=== PATIENT | female | born 2000 | race African-American/Black ===

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

== ENCOUNTER 2021-10-06 13:25 | Emergency (ER) | payer MEDICAID ==
[~2021-10-06] VITALS: Ht 167.6 cm; Wt 73.0 kg
[2021-10-06] MEDS ORDERED: IBUPROFEN 600MG TABLET PO STA (14:19)
[2021-10-06] MEDS ORDERED: NAPR-681 PO (16:36)
[2021-10-06] MEDS ORDERED: AMOX-424 PO (16:36)
[2021-10-06 17:36] VITALS: BP 141/75
== END 2021-10-06 17:36 | disposition home or self-care (01) ==
LOC: ER 13:34
DX: S61.253A Open bite of left middle finger without damage to nail, initial encounter (principal); S00.83XA Contusion of other part of head, initial encounter; Y04.1XXA Assault by human bite, initial encounter; Y04.0XXA Assault by unarmed brawl or fight, initial encounter; Y07.03 Male partner, perpetrator of maltreatment and neglect; Y93.89 Activity, other specified; Y92.89 Other specified places as the place of occurrence of the external cause
CPT/HCPCS: 70486; 81025; 99284

== ENCOUNTER 2023-01-29 05:36 | Inpatient (IN) | payer MEDICAID, OTHER ==
[~2023-01-29] VITALS: Ht 170.2 cm; Wt 117.9 kg
[~2023-01-29 05:36] MED LIST: AMOX-424 PO; NAPR-681 PO
[2023-01-29] MEDS ORDERED: SODIUM CHLORIDE 0.9% 1,000 ML IV ONE (05:45)
[2023-01-29 06:16] LABS: BG BASE EXCESS -1.3 mmol/L (-2.0-2.0); BG CARBOXYHEMOGLOBIN 0.8 % (0.5-1.5); BG DEOXYHEMOGLOBIN 4.6 % (0.0-5.0); BG FRACTION INSPIRED OXYGEN 21; BG HCO3 ACT 21.7 mmol/L (22.0-26.0); BG METHEMOGLOBIN 0.2 % (0.0-1.5); BG OXYGEN SATURATION 95.4 % (92.0-98.5); BG OXYHEMOGLOBIN 94.4 % (94.0-97.0); BG PO2 77.8 mmHg (75.0-100.0); BG SAMPLE SITE RIGHT RADIAL; BG TOTAL HEMOGLOBIN 14.2 g/dL (12.0-18.0); BG VENT MODE ROOM AIR
[2023-01-29 07:08] LABS: BASOPHILS % 0.3 % (0.0-2.0); EOSINOPHILS % 0.7 % (0.0-5.0); HEMATOCRIT. 36.6 % (36.0-48.0); HEMOGLOBIN. 12.2 g/dL (12.0-16.0); LYMPHOCYTES % 12.1 % (20.0-50.0); MEAN CORPUSCULAR HEMOGLOBIN 27.2 pg (28.0-32.0); MEAN CORPUSCULAR VOLUME 81.6 fL (81.0-99.0); MEAN PLATELET VOLUME 7.7 fl (7.4-10.4); MONOCYTES % 1.1 % (2.0-8.0); NEUTROPHILS % 85.8 % (40.0-76.0); PLATELET 331 x1000/uL (130-400); RED BLOOD CELL COUNT 4.49 mill/uL (4.2-5.4); RED CELL DISTRIBUTION WIDTH 16.2 % (11.6-14.6)
[2023-01-29 07:20] LABS: CHLORIDE 106 mEq/L (98-107)
[2023-01-29 07:29] LABS: B-HCG QUANTITATIVE 13 mIU/mL (<3)
[2023-01-29 07:43] LABS: HCG SCREEN POSITIVE
[2023-01-29] MEDS ORDERED: SODIUM CHLORIDE 0.9% 1000ML BAG (SEPSIS BOLUS) IV ONE (08:00)
[2023-01-29] MEDS ORDERED: PIPERACILLIN/TAZ 3.375G PREMIX 50 ML IV ONE (08:00)
[2023-01-29 09:47] LABS: INR 1.1; PROTHROMBIN TIME 11.6 sec (9.6-11.0)
[2023-01-29 10:29] LABS: CLARITY URINE CLOUDY (CLEAR); COLOR URINE YELLOW (YELLOW); KETONES URINE TRACE (NEGATIVE); LEUKOCYTE ESTERASE URINE 3+ (NEGATIVE); NITRITE URINE NEGATIVE (NEGATIVE); OCCULT BLOOD URINE 3+ (NEGATIVE); PH URINE 5.5 (4.5-8.0); PROTEIN URINE 1+ (NEGATIVE); SPECIFIC GRAVITY URINE 1.017 (1.005-1.030)
[2023-01-29] MEDS ORDERED: ACETAMINOPHEN 500MG TABLET PO PRN (16:45)
[2023-01-29 20:00] VITALS: BP 117/62
[2023-01-29] MEDS ORDERED: CLINDAMYCIN 900 MG in DEXTROSE 5% WATER 50 ML IV SCH (22:00)
[2023-01-30] VITALS (8 sets, daily range): BP systolic 97–145; BP diastolic 52–98
[2023-01-30] MEDS: CEFOXITIN 2G in DEXTROSE 5% WATER 100ML IV SCH ×5 (00:46→23:31)
[2023-01-30] MEDS: IBUPROFEN 600MG TABLET PO SCH ×5 (00:50→23:34)
[2023-01-31] VITALS: BP 101/49
[2023-01-31 04:00] VITALS: BP 98/54
[2023-01-31] MEDS: CEFOXITIN 2G in DEXTROSE 5% WATER 100ML IV SCH (05:25)
[2023-01-31] MEDS: IBUPROFEN 600MG TABLET PO SCH (06:15)
[2023-01-31 08:00] VITALS: BP 102/61
[2023-01-31 10:35] VITALS: BP 102/61
[2023-01-31 12:00] VITALS: BP 133/83
[2023-02-01 04:12] LABS: NEISSERIA GONORRHOEAE NAA Negative (Negative)
== END 2023-01-31 14:48 | disposition home or self-care (01) | DRG 561 ==
LOC: ER 05:36 → 6EST 07:15 → EDBEDREQ 07:20 → EDBEDREQTM 07:20 → EDBEDREQSVC 07:20 → ER 22:01
PROVIDERS: ADMIT Specialist; ATTEND Specialist
DX: O86.12 Endometritis following delivery (principal); I10 Essential (primary) hypertension; O99.215 Obesity complicating the puerperium; Z80.0 Family history of malignant neoplasm of digestive organs; Z83.3 Family history of diabetes mellitus
CPT/HCPCS: 36415; 36600; 71045; 76830; 76856; 80053; 81003; 82375; 82805; 83605; 83880; 84145; 84702; 84703; 85025; 87070; 87077; 87186; 87210; 87491; 87591; 93005; 99291; J0694; J2543; J7030; J7060